=== PATIENT | female | born 1990 | race African-American/Black ===

== ENCOUNTER 2017-07-22 17:45 | Emergency (ER) | payer OTHER ==
[~2017-07-22] VITALS: Ht 165.1 cm; Wt 68.0 kg
[~2017-07-22 17:45] MED LIST: CIPROFLOXACIN500 M1 PO; DIFLUCAN150 MG PO; MACROBID 100 M100 M1 PO; MYCELEX15 GM TP; PHENERGAN 25 MG25 M1 PO; PRENATAL PO
[2017-07-22 18:30] VITALS: BP 109/78
[2017-07-22 19:25] LABS: HEMATOCRIT 24.8 % (37.0-47.0); HEMOGLOBIN 7.8 gm/dL (12.0-15.0); MCH 20.3 pg (26.0-34.0); MCHC 31.3 g/dL (28.0-37.0); MCV 64.9 fL (80.0-100.0); PLATELET COUNT 282 thou/uL (150-400); RBC 3.83 mil/uL (4.20-5.00); RDW 18.6 % (10.5-14.5); WBC 7.4 thou/uL (4.0-11.0)
[2017-07-22 19:38] LABS: MANUAL DIFF YES
[2017-07-22 19:43] LABS: CREATININE 0.5 mg/dL (0.6-1.0); POTASSIUM 3.4 mmol/L (3.5-5.1)
[2017-07-22 19:55] LABS: MAGNESIUM 1.5 mg/dL (1.8-2.4); TOTAL BILIRUBIN 0.3 mg/dL (<0.1-1.0); TOTAL PROTEIN 6.8 g/dL (6.4-8.2)
[2017-07-22 20:37] LABS: ABSOLUTE NEUTROPHILS 4.4 thou/uL (1.4-8.2); TOTAL CELL COUNT 100
[2017-07-22 20:38] LABS: ANISOCYTOSIS 2+; HYPOCHROMASIA 2+; POLYCHROMASIA SLIGHT; SCHISTOCYTES FEW
[2017-07-22 20:39] LABS: MICROCYTES 2+
== END 2017-07-22 19:43 | disposition left against medical advice (07) ==
LOC: ER 17:45
PROVIDERS: Physician Assistant
DX: O29.40 Spinal and epidural anesthesia induced headache during pregnancy, unspecified trimester (principal); O26.899 Other specified pregnancy related conditions, unspecified trimester; Z3A.00 Weeks of gestation of pregnancy not specified